=== PATIENT | female | born 1995 | race Two or more races ===

== ENCOUNTER 2023-09-18 00:01 | Emergency (ER) | payer SELFPAY ==
[~2023-09-18] VITALS: Ht 162.6 cm; Wt 70.5 kg
[2023-09-18 00:10] VITALS: BP 118/88; RESP 22; O2SAT 99
[2023-09-18 00:17] VITALS: PULSE 92
[2023-09-18 00:40] LABS: Basophils # (auto) 0.1 10 ^3/uL (0-0.2); Basophils % (auto) 0.7 % (0.0-2.0); Eosinophils # (auto) 0.1 10 ^3/uL (0-0.8); Eosinophils % (auto) 1.2 % (0.0-7.0); Hematocrit 45.2 % (36.0-46.0); Lymphocytes # (auto) 3.1 10 ^3/uL (0.4-5.4); Lymphocytes % (auto) 26.9 % (10.0-50.0); Mean Corpuscular Hemoglobin 30.1 pg (28.0-32.0); Mean Corpuscular Hgb Conc. 33.3 g/dL (32.0-36.0); Mean Corpuscular Volume 90.4 fL (80.0-100.0); Monocytes # (auto) 0.7 10 ^3/uL (0-1.3); Monocytes % (auto) 6.2 % (0.0-12.0); Neutrophils # (auto) 7.5 10 ^3/uL (1.6-8.6); Red Blood Cells 4.99 10^6/uL (4.0-5.20); Red Cell Distribution Width 13.2 % (11.8-14.3); White Blood Cell 11.6 10^3/uL (4.4-10.8)
[2023-09-18 00:59] LABS: Alanine Aminotransferase 22 U/L (7-40); Alkaline Phosphatase 114 U/L (46-116); Anion Gap 13 (5-15); Aspartate Aminotransferase 28 U/L (13-40); BUN/Creatinine Ratio 9.6 (10.0-20.0); Blood Urea Nitrogen 8 mg/dL (9-23); Calcium 9.3 mg/dL (8.7-10.4); Carbon Dioxide 18 mmol/L (20-30); Chloride 108 mmol/L (98-107); Glucose 121 mg/dL (74-106); Potassium 3.7 mmol/L (3.5-5.1); Sodium 139 mmol/L (136-145)
[2023-09-18 01:00] LABS: Bilirubin, Total 0.4 mg/dL (0.2-1.0); INR 1.02 (0.9-1.15); Partial Thromboplastin Time 29.7 SEC (24.5-34.5); Prothrombin Time 10.7 sec (9.3-11.8)
[2023-09-18 01:27] LABS: Urine Bacteria FEW /hpf (None Seen); Urine Blood Negative /uL (Negative); Urine Clarity Clear (Clear); Urine Color Colorless (Yellow); Urine Protein, UAD Negative (Negative); Urine Specific Gravity 1.006 (1.001-1.035); Urine Urobilinogen Normal (Negative); Urine WBC 8 /hpf (0 - 5)
[2023-09-18] MEDS ORDERED: PANTOPRAZOLE 40 MG/10 ML VIAL INJ IV ONE (01:30)
[2023-09-18] MEDS ORDERED: LORazepam 0.5 MG TAB PO ONE (01:30)
[2023-09-18] MEDS ORDERED: ACETAMINOPHEN 325 MG TAB PO ONE (01:30)
[2023-09-18] MEDS ORDERED: MAALOX PLUS or MAALOX 30 ML PO ONE (02:15)
[2023-09-18] MEDS ORDERED: SODIUM CHLORIDE 0.9% 1,000 ML IV ONE (03:45)
[2023-09-18] MEDS ORDERED: ONDANSETRON HCL 4 MG/2 ML VIAL IV ONE (03:45)
[2023-09-18] MEDS ORDERED: LORazepam 2MG/ML-1ML VIAL IV ONE (03:45)
[2023-09-18] MEDS ORDERED: cefTRIAXone 1GM/50ML D5W 50 ML IV ONE (03:45)
[2023-09-18] MEDS ORDERED: IOHEXOL 300 MG/ML 100ML BOTTLE IJ ONE (04:05)
== END 2023-09-18 04:34 | disposition left against medical advice (07) ==
LOC: ER 00:01
DX: R07.89 Other chest pain (principal); D72.829 Elevated white blood cell count, unspecified; N39.0 Urinary tract infection, site not specified; K92.0 Hematemesis
CPT/HCPCS: 36415; 71045; 80053; 81001; 81025; 83605; 84484; 85025; 85379; 85610; 85730; 87086; 93005

== ENCOUNTER 2023-10-03 05:57 | Emergency (ER) | payer MEDICAID ==
[~2023-10-03] VITALS: Ht 160 cm; Wt 69.9 kg
[2023-10-03 06:23] VITALS: BP 104/75; PULSE 102; RESP 20; TEMP 99.5; O2SAT 100
[2023-10-03] MEDS ORDERED: AZIT500T66 PO (06:50)
[2023-10-03] MEDS ORDERED: LIDO2SOL26 MT (06:50)
[2023-10-03] MEDS ORDERED: LIDOCAINE VISCOUS 2% 15ML UD MT ONE (07:15)
== END 2023-10-03 07:21 | disposition home or self-care (01) ==
LOC: ER 05:57
DX: J03.90 Acute tonsillitis, unspecified (principal)

== ENCOUNTER 2024-07-20 12:00 | Emergency (ER) | payer SELFPAY ==
[~2024-07-20] VITALS: Ht 157.5 cm; Wt 80.0 kg
[~2024-07-20 12:00] MED LIST: AZIT500T66 PO; LIDO2SOL26 MT
[2024-07-20 12:38] VITALS: BP 112/55; PULSE 89; RESP 16; TEMP 98.1; O2SAT 97
[2024-07-20] MEDS: KETOROLAC TROMETH 60MG/2ML VIAL IM ONE (13:18)
[2024-07-20] MEDS ORDERED: METH-1182 PO (14:30)
[2024-07-20] MEDS ORDERED: IBUP-1456 PO (14:30)
== END 2024-07-20 14:25 | disposition home or self-care (01) ==
LOC: ER 12:00
DX: S16.1XXA Strain of muscle, fascia and tendon at neck level, initial encounter (principal); Z79.899 Other long term (current) drug therapy; X58.XXXA Exposure to other specified factors, initial encounter; Y93.89 Activity, other specified; Y92.89 Other specified places as the place of occurrence of the external cause; Y99.8 Other external cause status
CPT/HCPCS: 72040; 81025; 96372; 99284; J1885